=== PATIENT | female | born 1960 | race Caucasian/White ===

== ENCOUNTER 2016-08-28 12:02 | Inpatient (IN) | payer OTHER ==
[~2016-08-28] VITALS: Ht 160 cm; Wt 86.3 kg
--- NOTE | 2016-08-28 12:13 | NUR ---
PT AMBULATORY TO ROOM, AWAITING MSE
--- NOTE | 2016-08-28 12:20 | NUR ---
JOSE AT BEDSIDE FOR BLOOD DRAW
[2016-08-28 12:23] LABS: BASOPHIL % 0.3 % (0-2); PLATELET COUNT 243 x10^3mcL (130-400); RED CELL DISTRIBUTION WIDTH 14.1 % (11.5-14.5)
--- NOTE | 2016-08-28 12:26 | NUR ---
X-RAY AT BEDSIDE
[2016-08-28 12:29] LABS: CALCIUM 9.5 mg/dL (8.5-10.1); CHLORIDE SERUM 104 mmol/L (98-107); CREATININE SERUM 0.7 mg/dL (0.6-1.0); GFR1 > 60 mL/min; GLUCOSE SERUM 90 mg/dL (74-106); POTASSIUM SERUM 3.9 mmol/L (3.5-5.1); SODIUM SERUM 143 mmol/L (136-145)
--- NOTE | 2016-08-28 12:33 | NUR ---
DR DUBOIS AT BEDSIDE FOR MSE
[2016-08-28 12:34] LABS: ALBUMIN 3.8 g/dL (3.4-5.0); ALKALINE PHOSPHATASE 158 U/L (46-116); ALT/SGPT 124 U/L (14-59); AST/SGOT 128 U/L (15-37); BILIRUBIN TOTAL 0.3 mg/dL (0.20-1.00)
--- NOTE | 2016-08-28 12:38 | NUR ---
1 NITRO 0.4MG SUBLINGUAL ADMINISTERED TO PT.
--- NOTE | 2016-08-28 12:46 | NUR ---
2ND NITRO 0.4MG SUBLINGUAL GIVEN TO PT.
[2016-08-28 12:47] LABS: TOTAL PROTEIN, SERUM 8.9 g/dL (6.4-8.2)
--- NOTE | 2016-08-28 12:47 | NUR ---
PT MEDICATED WITH ASPIRIN 325MG PO PER MD ORDERS. DR DUBOIS AWARE PT TOOK ASPIRIN 81MG PO THIS MORNING. PT EDUCATED ON MEDICATION PRIOR TO ADMINISTRATION AND VERBALIZED UNDERSTANDING. PT REMAINS ON HOOP DRIVING MACHINE OPERATOR WITH CALL LIGHT IN REACH AND FAMILY AT BEDSIDE.
--- NOTE | 2016-08-28 12:49 | NUR ---
PT REPORTS HER CHEAT PAIN IS GONE AFTER SECOND NITRO. DR DUBOIS MADE AWARE ORDERED THIRD AND LAST NITRO ON PT.
--- NOTE | 2016-08-28 12:51 | NUR ---
DR DUBOIS ORDERED TO HOLD LAST NITRO. PT RECEVIED TWO 0.4MG NITRO SUBLINGUAL. PT REMAINS ON MOTORBOAT MECHANIC WITH CALL LIGHT IN REACH.
--- NOTE | 2016-08-28 13:01 | NUR ---
PT RESTING ON GURNEY IN A POSITION OF COMFORT. PT STS HER CHEST PAIN IS GONE PT REMAINS ON SERIALS LIBRARIAN WITH CALL LIGHT IN REACH.
--- NOTE | 2016-08-28 13:30 | NUR ---
DR DUBOIS AT BEDSIDE TO DISCUSS PLAN OF CARE WITH PT.
[2016-08-28] MEDS ORDERED: APAP500 MG (14:09)
[2016-08-28] MEDS ORDERED: ASPIR LOW81 MG PO (14:09)
--- NOTE | 2016-08-28 14:10 | NUR ---
REPORT GIVEN TO ASHISH WALLACE TO ASSUME CARE OF PT PTS PRIMARY NURSE
--- NOTE | 2016-08-28 14:22 | NUR ---
RECEIVED PT FROM ED CAME IN AMBULATING. AAO x4. LUNG SOUNDS CTA. 20G IV IN THE LAC. SITE IS PATENT, WAS HOOKED UP TO NS RUNNING AT 50ML/HR AND INFUSING WELL. TUBING AND BAG LABELLED. TELE BOX #2 ATTACHED TO PT, AND IS CURRENTLY NSR WITH A HR OF 93. LAST BM WAS THIS MORNING. SKIN IS INTACT. HAS BRP AND VOIDED WHEN SHE ARRIVED TO ROOM. INFORMATION BOARD UPDATED. DENIES PAIN AT THIS TIME. ORIENTED TO THE ROOM. CALL LIGHT WITHIN REACH. ENCOURAGED TO CALL FOR ASSISTANCE WHEN NEEDED. WILL CONTINUE TO MONITOR
[2016-08-28 14:25] VITALS: BP 178/76
[2016-08-28 14:31] LABS: CHOLESTEROL/HDL RATIO 4.2
--- NOTE | 2016-08-28 14:35 | NUR ---
PT SEEN LYING IN BED, RECEIVED BY PRIMARY NURSE PATRICE FROM ED. PT IS AAOX4. DENIES HEADACHE/DIZZINESS. NO SOB NOTED. STATED THAT SHE HAS 1/10 MID CHEST PAIN DESCRIBED PRESSUURE, NSR ON THE MONITOR. DENIES ABDOMINAL DISCOMFORT. BOWEL SOUNDS ACTIVE. IV SITE PATENT AND INTACT. SIDE RAILS UPX2. CALL LIGHT ON REACH
[2016-08-28 14:40] LABS: FREE T4 0.82 ng/dL (0.76-1.46); FREE THYROXINE INDEX 2.2 ug/dL (1.4-4.5); T4(THYROXINE) 8.9 ug/dL (4.7-13.3)
[2016-08-28 14:45] VITALS: Ht 160 cm; Wt 86.3 kg
[2016-08-28 15:10] LABS: T3 TOTAL 1.39 ng/mL
--- NOTE | 2016-08-28 20:00 | NUR ---
RECEIVED PT IN BED, ALERT AND ORIENTED. ABLE TO VERBALIZE NEEDS. DENIES HEADACHE/DIZZINESS. RESP.EVEN AND UNLABORED. LUNGS SOUNDS CLEAR BILAT.NO DISTRESS NOTED. SR ON THE MONITOR. DENIES CHEST PAIN OR ANY DISCMFORT AT THIS TIME. IVF, NS AT 50ML/HR, INTACT AND INFUSING WELL, SITE CLEAR. ABLE TO MOVE ALL EXTS. AMBULATORY. ASSISTED WITH HS CARE. CALL LIGHT WITHIN REACH. WILL CONTINUE TO MONITOR.
[2016-08-28 21:01] VITALS: BP 139/68
[2016-08-28 23:03] LABS: microscopic required? NO
[2016-08-28 23:16] LABS: urine erythrocyte NEGATIVE (NEGATIVE)
[2016-08-28 23:29] LABS: AMPHETAMINE QUAL UR NONE DETECTED (NEG <=1000)
--- NOTE | 2016-08-29 01:30 | NUR ---
ASLEEP. EASILY AROUSABLE. RESP. EVEN AND UNLABORED. NO DISTRESS NOTED. IVF INTACT AND INFUSING WELL, SITE CLEAR. WILL CONTINUE TO MONITOR.
[2016-08-29 04:51] LABS: BASOPHIL % 0.5 % (0-2); PLATELET COUNT 198 x10^3mcL (130-400); RED CELL DISTRIBUTION WIDTH 14.5 % (11.5-14.5)
[2016-08-29 05:03] LABS: CALCIUM 8.1 mg/dL (8.5-10.1); CARBON DIOXIDE 31.5 mmol/L (21-32); CHLORIDE SERUM 106 mmol/L (98-107); CREATININE SERUM 0.8 mg/dL (0.6-1.0); GFR1 > 60 mL/min; GLUCOSE SERUM 106 mg/dL (74-106); PHOSPHOROUS 3.2 mg/dL (2.5-4.9); SODIUM SERUM 139 mmol/L (136-145)
[2016-08-29 05:16] VITALS: BP 123/73
--- NOTE | 2016-08-29 06:34 | NUR ---
RESP. EVEN AND UNLABORED. NO DISTRESS NOTED. AFEBRILE AND VITAL SIGNS STABLE. NO COMPLAINTS NOTED DURING THE NIGHT. SLEPT WELL, KEPT COMFORTABLE. VOIDING FREELY. DENIES CHEST PAIN OR ANY DISCOMFORT AT THIS TIME. IVF INTACT AND INFUSING WELL, SITE CLEAR. WILL ENDORSE TO INCOMING NURSE.
--- NOTE | 2016-08-29 07:48 | NUR ---
AT 0710 - RECEIVED PATIENT FROM NIGHT NURSE. PATIENT AWAKE, ALERT AND ORIENTED. MONITOR SHOWING SINUS RHYTHM; RATE 90'S. NO ECTOPIES. DENEIS ANY CHEST PAIN. RESPIRATIONS REGULAR WITHOUT SHORTNESS OF BREATH. DAUGHTER AT BEDSIDE. IV INFUSING NS AT 50ML/HR. AT 0740 - PATIENT HAS EATEN BREAKFAST.
[2016-08-29 10:00] VITALS: BP 143/71
--- NOTE | 2016-08-29 12:12 | NUR ---
AT 0805 - SEEN BY DR GREEN DURING MORNING ROUNDS. MEDICAL TEAM DOCTORS, FAYE VALERA AND MYSELF PRIMARY NURSE ALSO PRESENT. DR NEIL SPOKE WITH PATIENT IN POLISH. POSSIBLE DISCHARGE HOME LATER TODAY AFTER COMPLETION/CLEARANCE OF CARDIAC WORK-UP. PATIENT VERBALIZED UNDERSTANDING.
--- NOTE | 2016-08-29 12:14 | NUR ---
ECHOCARDIOGRAM COMPLETED
--- NOTE | 2016-08-29 12:18 | NUR ---
AT 1000 - PATIENT PLACED NPO FOR ABDOMINAL ULTRASOUND. PATIENT AWARE.
--- NOTE | 2016-08-29 13:33 | NUR ---
REMAINS NPO. AWAITING ULTRASOUND OF ABDOMEN. WILL BE DONE BETWEEN [id number] PER RADIOLOGY.
[2016-08-29 14:04] VITALS: BP 145/85
[2016-08-29] MEDS ORDERED: ATORVASTATIN CA40 M1 PO (16:41)
[2016-08-29 17:03] VITALS: BP 145/85
--- NOTE | 2016-08-29 17:15 | NUR ---
AT 1530 - ABDOMINAL ULTRASOUND COMPLETED. PATIENT GIVEN LATE LUNCH. AT 1700 - PATIENT HAS BEEN SEEN BY DR CLEMENT. MEDICATION ORDERS CHANGED. RECEIVED DISCHARGE ORDERS. DR PECK SPOKE WITH PATIENT AND DAUGHTER. IV DISCONTINUED. PATIENT TAKEN OFF CARDIAC MONITORING.
--- NOTE | 2016-08-29 17:47 | NUR ---
AT 1730 - PRINTED DISCHARGE ORDERS GIVEN AND EXPLAINED TO PATIENT AND DAUGHTER. PRESCRIPTION PROVIDED. IV CATHETER REMOVED INTACT. AT 1745 - DISCHARGED HOME WITH DAUGHTER. ESCORTED TO CAR BY LATRICIA.
== END 2016-08-29 17:53 | disposition home or self-care (01) | DRG 203 ==
LOC: ED 12:02 → DU 13:46
PROVIDERS: ADMIT Family Medicine
DX: M94.0 Chondrocostal junction syndrome [Tietze] (principal); N17.0 Acute kidney failure with tubular necrosis; R73.03 Prediabetes; I10 Essential (primary) hypertension; E78.5 Hyperlipidemia, unspecified; E02 Subclinical iodine-deficiency hypothyroidism; Z79.82 Long term (current) use of aspirin; Z68.33 Body mass index [BMI] 33.0-33.9, adult
CPT/HCPCS: 80307; 82962; 83880; 84439; G0480; J7030; Q0092

== ENCOUNTER 2016-09-21 09:08 | Emergency (ER) | payer OTHER ==
[~2016-09-21] VITALS: Ht 152.4 cm; Wt 84.5 kg
[~2016-09-21 09:08] MED LIST: APAP500 MG; ASPIR LOW81 MG PO; ATORVASTATIN CA40 M1 PO
[2016-09-21 12:41] VITALS: BP 138/80
== END 2016-09-21 12:42 | disposition home or self-care (01) ==
LOC: ED 09:08
DX: I80.8 Phlebitis and thrombophlebitis of other sites (principal); R03.0 Elevated blood-pressure reading, without diagnosis of hypertension; E78.5 Hyperlipidemia, unspecified; Z79.899 Other long term (current) drug therapy

== ENCOUNTER 2016-12-08 21:46 | Emergency (ER) | payer OTHER ==
[2016-12-08 23:23] LABS: BASOPHIL % 0.4 % (0-2); PLATELET COUNT 232 x10^3mcL (130-400)
[2016-12-08 23:25] LABS: RED CELL DISTRIBUTION WIDTH 14.6 % (11.5-14.5)
[2016-12-08 23:33] LABS: CALCIUM 9.5 mg/dL (8.5-10.1); CARBON DIOXIDE 28.4 mmol/L (21-32); CHLORIDE SERUM 105 mmol/L (98-107); CREATININE SERUM 0.9 mg/dL (0.6-1.0); GFR1 > 60 mL/min; GLUCOSE SERUM 175 mg/dL (74-106); POTASSIUM SERUM 3.6 mmol/L (3.5-5.1); SODIUM SERUM 142 mmol/L (136-145)
[2016-12-08 23:38] LABS: ALBUMIN 3.5 g/dL (3.4-5.0); ALKALINE PHOSPHATASE 163 U/L (46-116); ALT/SGPT 161 U/L (14-59); AST/SGOT 136 U/L (15-37); BILIRUBIN TOTAL 0.2 mg/dL (0.20-1.00); TOTAL PROTEIN, SERUM 8.2 g/dL (6.4-8.2); URIC ACID 4.4 mg/dL (2.6-6.0)
[2016-12-09 02:00] VITALS: BP 132/76
== END 2016-12-09 02:00 | disposition home or self-care (01) ==
LOC: ED 21:46
PROVIDERS: Emergency Medicine
DX: N23 Unspecified renal colic (principal); Z87.442 Personal history of urinary calculi; Z79.82 Long term (current) use of aspirin; Z79.899 Other long term (current) drug therapy
CPT/HCPCS: J1885; J2270; J2405

== ENCOUNTER 2016-12-10 11:26 | Emergency (ER) | payer OTHER ==
[2016-12-10 16:34] LABS: BASOPHIL % 0.2 % (0-2); PLATELET COUNT 212 x10^3mcL (130-400); RED CELL DISTRIBUTION WIDTH 14.5 % (11.5-14.5)
[2016-12-10 16:37] LABS: UA SPECIFIC GRAVITY >=1.030 (1.005-1.035); microscopic required? YES; urine erythrocyte 3+ (NEGATIVE)
[2016-12-10 16:42] LABS: CARBON DIOXIDE 27.5 mmol/L (21-32); CHLORIDE SERUM 102 mmol/L (98-107); CREATININE SERUM 0.9 mg/dL (0.6-1.0); GFR1 > 60 mL/min; GLUCOSE SERUM 126 mg/dL (74-106); POTASSIUM SERUM 3.9 mmol/L (3.5-5.1); SODIUM SERUM 139 mmol/L (136-145)
[2016-12-10 16:44] LABS: ALBUMIN 3.7 g/dL (3.4-5.0); ALKALINE PHOSPHATASE 116 U/L (46-116); ALT/SGPT 135 U/L (14-59); AMYLASE 50 U/L (25-115); AST/SGOT 95 U/L (15-37); BILIRUBIN TOTAL 0.3 mg/dL (0.20-1.00); LIPASE 122 IU/L (73-393)
[2016-12-10 16:52] LABS: TOTAL PROTEIN, SERUM 8.5 g/dL (6.4-8.2)
[2016-12-10 16:56] VITALS: BP 164/92
== END 2016-12-10 16:56 | disposition home or self-care (01) ==
LOC: ED 11:26
DX: N23 Unspecified renal colic (principal); R31.9 Hematuria, unspecified; D72.829 Elevated white blood cell count, unspecified
CPT/HCPCS: 36415